=== PATIENT | male | born 1960 | race Caucasian/White ===

== ENCOUNTER 2016-10-28 11:31 | Outpatient (CLI) | END 2016-10-28 11:32 | disposition home or self-care (01) | LOC: LAB 11:31 | PROVIDERS: ATTEND Family Medicine | DX: Z02.83 Encounter for blood-alcohol and blood-drug test (principal) | CPT/HCPCS: 36415 ==

== ENCOUNTER 2018-06-14 11:27 | Outpatient (CLI) ==
--- NOTE | 2018-06-14 12:29 | US ---
EXAM: Left lower extremity venous Doppler History: Left lower extremity pain. Comparison: None available. Technique: Multiple sonographic images through the left lower extremity were obtained. Color duplex Doppler was used to interrogate vascular flow. Findings: The left common femoral, greater saphenous, profunda, superficial femoral, popliteal, jacob wilberto, posterior tibial and anterior tibial veins demonstrate spontaneous flow with normal compression and normal augmentation. Incidentally noted there is arterial plaque buildup seen within the left s uperficial femoral artery. Impression: 1. No sonographic evidence for venous thrombosis within the left lower extremity. 2. Atherosclerotic plaque buildupseen within the left superficial femoral artery could be the cause of the lower extremity pain. Recommend further evaluation with bilateral lower extremity arterial Do ppler.
== END 2018-06-14 11:28 | disposition home or self-care (01) ==
LOC: RAD 11:27
PROVIDERS: ATTEND Nurse Practitioner Family
DX: M79.662 Pain in left lower leg (principal)

== ENCOUNTER 2018-11-15 11:02 | Emergency (ER) ==
[2018-11-15 11:05] VITALS: BP 156/103; TEMP 97.2; BMI 21.1
--- NOTE | 2018-11-15 11:38 | ED.PDOC ---
General ED Provider: Dr. MARION GARCIA Chief Complaint: Bite Stated Complaint: Bite garima to Rt Cheek below RT eye. First noticed this morning. No change in vision. Did not see any spider on insect in surrouning area. Has some pruritis Time Seen by Physician: 11:05 Mode of Arrival: Walk-In Information Source: Patient Exam Limitations: No limitations Primary Care Provider: ZARA RODRIGUEZ Nursing and Triage Documentation Reviewed and Agree: Yes Does patient meet sepsis criteria?: No System Inflammatory Response Syndrome: Not Applicable Sepsis Protocol: For patient's 13 years and over: Temp is 96.8 and below OR 101 and greater Pulse >90 BPM Resp >20/minute Acutely Altered Mental Status Are patient's symptoms suggestive of a new infection, such as: -Pneumonia -Skin, Soft Tissue -Endocarditis -UTI -Bone, Joint Infection -Implantable Device -Acute Abdominal Infection -Wound Infection -Meningitis -Blood Stream Catheter Infection -Unknown Skin Complaint Exam - Skin Rash/Itching Complaint/Exam Symptoms Are: Still present Initial Severity: Mild Current Severity: Mild Location: Rt infraorbital Potential Exposures: Reports: Unknown Aggravating: Reports: None Alleviating: Reports: None Associated Signs and Symptoms: Denies: Difficulty breathing, Fever, Chills Skin Findings: Present: Lesions (3 superficial linear scratch like area approcimately .25 mm) Differential Diagnoses: Allergic Reaction, Other (insect bite) Review of Systems - Review Of Systems Constitutional: Reports: No symptoms Eyes: Reports: No symptoms Ears, Nose, Mouth, Throat: Reports: No symptoms Respiratory: Reports: No symptoms Cardiac: Reports: No symptoms GI: Reports: No symptoms : Reports: No symptoms Musculoskeletal: Reports: No symptoms Skin: Reports: No symptoms Neurological: Reports: No symptoms Endocrine: Reports: No symptoms Hematologic/Lymphatic: Reports: No symptoms All Other Systems: Reviewed and Negative Past Medical History - Past Medical History Previously Healthy: Yes Endocrine: Reports: None Cardiovascular: Reports: None Respiratory: Reports: None Hematological: Reports: None Gastrointestinal: Reports: None Genitourinary: Reports: None Neuro/Psych: Reports: None Musculoskeletal: Reports: None Cancer: Reports: None - Surgical History General Surgical History: Reports: None - Family History Family History: Reports: None - Social History Smoking Status: Current every day smoker, Heavy tobacco smoker Hx Substance Use: No Alcohol Screening: None - Immunizations Tetanus Shot up to Date: No Physical Exam - Physical Exam Appearance: Well-appearing, No pain distress, Well-nourished Ill-appearing: None Pain Distress: None Eyes: UZMA, EOMI, Conjunctiva clear ENT: Ears normal, Nose normal, Oropharynx normal Respiratory: Airway patent, Breath sounds clear, Breath sounds equal, Respirations nonlabored Cardiovascular: RRR, Pulses normal, No rub, No murmur GI/: Soft, Nontender, No masses, Bowel sounds normal, No Organomegaly Musculoskeletal: Normal strength, ROM intact, No edema, No calf tenderness Skin: Warm, Dry, Normal color Neurological: Sensation intact, Motor intact, Reflexes intact, Cranial nerves intact, Alert, Oriented Psychiatric: Affect appropriate, Mood appropriate Critical Care Note - Critical Care Note Total Time (mins): 0 Course - Course Vital Signs: Temp Pulse Resp BP Pulse Ox 11/15/18 11:02 97.2 F L 73 20 156/103 H 96 Departure - Departure Time of Disposition: 11:40 Disposition: HOME SELF-CARE Discharge Problem: Bug bite of face without infection Instructions: Insect Bite or Sting (ED) Condition: Good Pt referred to PMD for follow-up: Yes IPMP verified?: No Additional Instructions: Keep area clean and dry Apply antibiotic ointment to area and bandaid daily Take Benadry 25 mg 1 capsule or tablet every 6 hrs of itching or swelling Follow up with pcp as needed Allergies/Adverse Reactions: Allergies No Known Allergies Allergy (Unverified 11/15/18 11:05) Home Medications: Ambulatory Orders Aspirin [Aspir-Low] 81 mg PO DAILY 11/15/18 Disposition Discussed With: Patient
== END 2018-11-15 11:52 | disposition home or self-care (01) ==
LOC: ED 11:02
DX: S00.86XA Insect bite (nonvenomous) of other part of head, initial encounter (principal); W57.XXXA Bitten or stung by nonvenomous insect and other nonvenomous arthropods, initial encounter; F17.210 Nicotine dependence, cigarettes, uncomplicated
CPT/HCPCS: 99282